=== PATIENT | female | born 1975 | race Asian ===

== ENCOUNTER 2017-06-02 18:03 | Emergency (ER) | payer OTHER | END 2017-06-03 00:54 | disposition home or self-care (01) | LOC: FTE 06-03 00:54 | DX: M79.604 Pain in right leg (principal) | CPT/HCPCS: 93971; 99284-25 ==

== ENCOUNTER 2017-10-06 17:04 | Emergency (ER) | payer OTHER | END 2017-10-06 18:45 | disposition home or self-care (01) | LOC: FTE 17:04 | DX: S90.861A Insect bite (nonvenomous), right foot, initial encounter (principal); W57.XXXA Bitten or stung by nonvenomous insect and other nonvenomous arthropods, initial encounter; Y92.9 Unspecified place or not applicable | CPT/HCPCS: 99283-25 ==

== ENCOUNTER 2017-12-27 16:06 | Emergency (ER) | payer OTHER | END 2017-12-27 16:42 | disposition home or self-care (01) | LOC: FTE 16:06 | DX: S80.862A Insect bite (nonvenomous), left lower leg, initial encounter (principal); S80.861A Insect bite (nonvenomous), right lower leg, initial encounter; W57.XXXA Bitten or stung by nonvenomous insect and other nonvenomous arthropods, initial encounter; Y92.9 Unspecified place or not applicable | CPT/HCPCS: 99282; Z7502 ==